=== PATIENT | male | born 1985 ===

== ENCOUNTER 2023-06-23 14:17 | Outpatient (CLI) | payer OTHER, SELFPAY ==
--- NOTE | 2023-06-23 10:45 | DI.RAD_ITS ---
Exam(s) XR SHOULDER RT COMPLETE 2+V EXAM: XR SHOULDER RT COMPLETE 2+V CLINICAL HISTORY: RIGHT SHOULDER PAIN. TECHNIQUE: 2D digital imaging was performed of the right shoulder. Two images were obtained. Axill mo and Grashey views were obtained. COMPARISON: No exams were available for comparison FINDINGS: BONES: No acute fracture is present. No bony destructive lesion is seen. JOINTS: No dislocation present. There are prominent degenerative changes seen in the glenohumeral gaby nt with joint space narrowing and osteophyte at the inferior aspect of the humeral head. The acromio clavicular joint is unremarkable. SOFT TISSUE: The visualized lung terry are clear. IMPRESSION: Osteoarthritis at the glenohumeral joint. DATA REPOSITORY: RADIATION DOSE DELIVERED:
== END 2023-06-23 14:18 | disposition home or self-care (01) ==
LOC: DIORS 15:00
PROVIDERS: Visit Provider Student in an Organized Health Care Education/Training Program
DX: M19.011 Primary osteoarthritis, right shoulder (principal)
CPT/HCPCS: 73030

== ENCOUNTER → 2023-08-13 00:18 | Outpatient (CLI) | payer OTHER, SELFPAY ==
--- NOTE | 2023-08-13 08:08 | DI.RAD_ITS ---
Exam(s) RF JOINT INJ. FLUORO GUID RAD EXAM: RF JOINT INJ. FLUORO GUID RAD CLINICAL HISTORY: R SHOULDER PAIN,ARTHRITIS, FLUORO GUIDED INJECTION,m19.011. The Patient has had p ersistent right shoulder pain. Noninvasive measures have been tried. To serve as both diagnostic an d therapeutic, an injection under fluoroscopy was recommended. The risks of the procedure were discu ssed with their Orthopedic provider and the patient elected to proceed. TECHNIQUE: 2D and realtime digital imaging was performed. CONTRAST MATERIAL: Water soluble contrast was utilized. COMPARISON: No exams were available for comparison FINDINGS: The Patient was greeted in the fluoroscopy room. The correct side was identified and the consent was reviewed with the patient and was signed. The patient was properly positioned on the fluoroscopy ta ble. The right shoulderwas then prepped with Chloraprep and draped. The right show injection starti ng point was identified by the bony landmarks and fluoroscopy. The skin and soft tissue in the tract of the injection was anesthetized with 1% Lidocaine. A spinal needle was then inserted into the rig ht shoulder joint at the level of the glenohumeral joint under fluoroscopic guidance. A small amount of Omnipaque solution was injected to confirm intraarticular placement. Once confirmed, the right s houlder was injected with 5cc of a solution containing 0.5% Bupivaine and 80 mg of Depo-Medrol. A ba ndaid was placed on the injection site. The patient tolerated the procedure well and left the depart ment in good condition. IMPRESSION: Successful right shoulder injection. RADIATION DOSE DELIVERED: Ka,r=2.21 mGy
[2023-08-13] MEDS: Omnipaque 300 MG/ML 10 ML BTL 5 ML IJ (16:17)
[2023-08-13] MEDS: Bupivacaine 0.5% Pres-Free 10 ML VIAL 8 ML IJ (16:18)
[2023-08-13] MEDS: methylPREDNISolone ACETATE 80 MG/ML VIAL IM (16:18)
[2023-08-13] MEDS: Normal Saline - Diluent 50 ML VIAL IJ (16:19)
== END ==
PROVIDERS: Visit Provider Student in an Organized Health Care Education/Training Program
DX: M19.011 Primary osteoarthritis, right shoulder (principal)
CPT/HCPCS: 20610; 77002; J0665; J1040